=== PATIENT | female | born 1935 | race Caucasian/White ===

== ENCOUNTER 2017-04-04 10:05 | Observation (INO) | payer MEDICARE, OTHER ==
[~2017-04-04] VITALS: Ht 162.6 cm; Wt 70.5 kg
[~2017-04-04 10:05] MED LIST: ASPIRIN EC81 MG PO; ASPIRIN LOW STR81 MG PO; BACITRAYCIN PLU28 GM TP; CIPRO500 M2 PO; CITRUCEL POWDE454 GM PO; CITRUCEL479 GM PO; CLORAZEPATE DI7.5 M1 PO; CYCLOBENZAPRINE10 M1 PO; EQL FISH OIL 1,1 CA1 PO; FISH OIL 1,0001 EAC6 PO; FLEXERIL 10MG PO; FLONASE ALLERG9.9 ML; FLONASE16 GM NS; HYDROCODONE PO; HYDROCODONE/APA1 CAP PO; LOPRESSOR25 MG/TA1 GT; LOSARTAN-HCTZ1 EAC6 PO; MELOXICAM7.5 MG PO; MOBIC7.5 MG PO; NORCO 5-325 TA1 EACH PO; NORCO 5/325 TAB1 TAB PO; NORCO 5/3251 TAB PO; PREMARIN0.625 MG PO; PREVALITE POWD231 G1 PO; PREVALITE POWD231 GM PO; PRILOSEC OTC20 M1 PO; PRILOSEC20 MG PO; QUESTRAN PACKET4 GM PO; ROBAXIN500 M1 PO; TOPROL XL50 M1 PO; TOPROL XL50 MG PO; TYLENOL650 MG PO; ULTRAM50 MG PO; VITAMIN D32000 UNI1 PO; VITAMIN D32000 UNI3 PO; ZOFRAN ODT4 MG PO; ZYRTEC10 M1 PO; ZYRTEC10 M7 PO
[2017-04-04] MEDS ORDERED: ZYRTEC10 M7 PO (10:17)
[2017-04-04] MEDS ORDERED: NAMENDA5 M1 PO (10:18)
[2017-04-04] MEDS ORDERED: MELOXICAM15 M1 PO (10:19)
[2017-04-04] MEDS ORDERED: SINGULAIR10 M1 PO (10:19)
[2017-04-04] MEDS ORDERED: COZAAR100 M1 PO (10:20)
[2017-04-04] MEDS ORDERED: ARICEPT5 M1 PO (10:21)
[2017-04-04] MEDS ORDERED: ROPINIROLE HC0.25 M1 PO (10:22)
[2017-04-04 10:47] LABS: BASO % 0.4 % (0-2); EOS % 3.1 % (0-7); EOSINOPHIL ABSOLUTE COUNT 0.2 tho/cmm (0.0-0.7); HCT-HEMATOCRIT 35.4 % (34.0-49.0); HGB-HEMOGLOBIN 11.6 gm/dl (12.0-15.5); IMMATURE GRANULOCYTES ABSOLUTE 0.01 tho/cmm (0-0.03); IMMATURE GRANULOCYTES PERCENT 0.2 % (0-0.3); LYMPH % 27.9 % (20-45); LYMPH ABSOLUTE COUNT 1.5 tho/cmm (0.8-4.5); MCH (MEAN CORPUSCULAR HGB) 28.4 pg (28.0-32.0); MCHC MEAN CORPUSCULAR HGB CONC 32.8 % (32.0-36.0); MCV (MEAN CELL VOLUME) 86.6 fl (82.0-96.0); MEAN PLATELET VOLUME 8.9 cmc (9.4-12.4); MONO % 7.1 % (0-12); MONOCYTE ABSOLUTE COUNT 0.4 tho/cmm (0.0-1.2); NEUTROPHIL ABSOLUTE COUNT 3.4 tho/cmm (1.6-8.0); NEUTROPHIL-AUTOMATED 3.4 tho/cmm (1.6-8.0); NEUTROPHILS % 61.3 % (40-80); PLATELET COUNT 228 tho/cmm (150-450); RED BLOOD COUNT 4.09 mil/cmm (4.00-5.20); RED CELL DISTRIBUTION WIDTH 13.4 % (12.4-16.4); WHITE BLOOD COUNT 5.5 tho/cmm (4.0-10.0)
[2017-04-04 11:08] LABS: ANION GAP 14 mmol/L (0-20); BLOOD UREA NITROGEN 21 mg/dl (6-24); CALCIUM 8.3 mg/dl (8.5-10.5); CARBON DIOXIDE-VENOUS 25 mmol/L (22-32); CHLORIDE 105 mmol/l (96-110); CREATININE 0.78 mg/dl (0.50-1.10); GLUCOSE 117 mg/dL (70-110); POTASSIUM 3.9 mmol/L (3.7-5.1); SODIUM 140 mmol/L (135-145); eGFR VALUE FOR BLACK 81 mL/Min
[2017-04-05 10:08] LABS: ANION GAP 10 mmol/L (0-20); BLOOD UREA NITROGEN 20 mg/dl (6-24); CALCIUM 8.5 mg/dl (8.5-10.5); CARBON DIOXIDE-VENOUS 31 mmol/L (22-32); CHLORIDE 106 mmol/l (96-110); CREATININE 0.77 mg/dl (0.50-1.10); GLUCOSE 88 mg/dL (70-110); SODIUM 143 mmol/L (135-145); eGFR VALUE FOR BLACK 83 mL/Min
[2017-04-05 10:12] LABS: POTASSIUM 4.4 mmol/L (3.7-5.1)
[2017-04-05] MEDS ORDERED: NORVASC5 M2 PO (15:46)
[2017-04-05] MEDS ORDERED: PLAVIX75 M1 PO (15:46)
== END 2017-04-05 17:15 ==
LOC: EDMED → EDBD 10:05 → CAR1 12:33 → EMR2 12:33 → CAR1 13:55
PROVIDERS: Emergency Medicine; Physician Assistant; ADMIT Internal Medicine Cardiovascular Disease
DX: I25.10 Atherosclerotic heart disease of native coronary artery without angina pectoris (principal); I10 Essential (primary) hypertension; E78.5 Hyperlipidemia, unspecified; Z79.82 Long term (current) use of aspirin; Z79.899 Other long term (current) drug therapy
CPT/HCPCS: C1894; C8929; G0378; J1644; J1650; J2250; J2405; J3010; J7030; Q9967